=== PATIENT | male | born 1970 | race Caucasian/White ===

== ENCOUNTER 2020-04-30 05:08 | Inpatient (IN) ==
[2020-04-30 05:39] LABS: Basophils # (auto) 0.05 K/uL (0-0.2); Basophils % (auto) 0.4 %; Eosinophils % (auto) 5.8 %; Hematocrit (blood only) 41.5 % (42-52); Hemoglobin 14.1 g/dL (14.0-18.0); Immature Granulocytes # (auto) 0.04 K/uL (0.00-0.02); Immature Granulocytes % (auto) 0.3 %; Lymphocytes # (auto) 3.19 K/uL (1.2-3.4); Lymphocytes % (auto) 26.3 %; Mean Corpuscular Hemoglobin 29.5 pg (25-34); Mean Corpuscular Volume 86.8 fL (80-100); Mean Platelet Volume 11.9 fL (7.4-10.4); Monocytes # (auto) 1.01 K/uL (0.11-0.59); Monocytes % (auto) 8.3 %; Neutrophils # (auto) 7.15 K/uL (1.4-6.5); Neutrophils % (auto) 58.9 %; Platelet Count 238 K/uL (130-400); RDW Coefficient of Variation 15.1 % (11.5-14.5); RDW Standard Deviation 48.4 fL (36.4-46.3); Red Blood Count 4.78 M/uL (4.7-6.1); White Blood Count 12.14 K/uL (4.8-10.8)
[2020-04-30 05:48] LABS: Albumin Level 3.7 gm/dl (3.4-5.0); BUN Creatinine Ratio 16.5 (10-20); Calcium 8.8 mg/dl (8.5-10.1); Creatinine Clr Calc Pharmacy 105.3 ml/min; Est GFR (African American) 98.9; Est GFR (Non-African American) 85.3; Potassium 4.3 mmol/L (3.5-5.1)
--- NOTE | 2020-04-30 05:52 | Emergency Department Note ---
Impression & Plan Non-ST elevation (NSTEMI) myocardial infarction ED Provider Note NAME: OLEGARIO GUTIÉRREZ AGE: 50 SEX: M ARRIVES VIA: Walk-In INFORMANT: Patient ED PROVIDER(S): Ping Lozano DO CHIEF COMPLAINT: Chest pain [facility]AN[facility]: Stable MEDICAL DECISION MAKING: This is a 50-year-old male patient who presents to the emergency department having intermittent episodes of chest pain. Patient has a known cardiac history with previous stents placed. Patient has a normal-appearing EKG but has an elevated troponin. His presentation is consistent with NSTEMI. Patient patient will be treated with IV heparin. He had already taken aspirin prior to presentation. His blood pressure and heart rate are controlled. [facility] and [facility] will evaluate for further management. Triage Nursing notes reviewed and agree them. Additional history obtained from at the bedside Vital Signs: reviewed and remarkable for hypertension Differential diagnosis: STEMI, NSTEMI, angina, GERD, anxiety ER treatment provided: IV heparin bolus and drip Diagnostics interpreted by me: ECG: Normal sinus rhythm with frequent PVCs. No ST segment elevation or signs of ischemia Cardiac Monitoring: Normal sinus rhythm at 80 Laboratory studies: See below Imaging studies: As per my interpretation Chest x-ray: The patient is rotated in the film but there are some small nodular densities. HPI: 50/M arrives for evaluation of chest pain. The patient has been having intermittent episodes of substernal chest discomfort over the past 2 days. He has been using his nitroglycerin more frequently. Patient had an episode at 3 AM this morning which she describes as being severe. He took 2 sublingual nitro which did relieve the discomfort. There was some associated shortness of breath with that episode. Patient has a history of 2 previous heart attacks and 2 previous stents placed. ROS: See above HPI for pertinent positives & negatives. A total of 10 systems reviewed and were otherwise negative. PAST MEDICAL HISTORY:Patient has a history of heart disease with 2 previous stent placements( OM2 and PDA) after having 2 previous MIs. PAST SURGICAL HISTORY:See Below FAMILY HISTORY:See Below SOCIAL HISTORY:Patient is a team otr truck driver, he is , HOME MEDICATIONS:See list ALLERGIES:None VITALS:See Below PHYSICAL EXAMINATION: HEENT: Head - normocephalic and atraumatic Pupils are equal, round, and reactive to light. Extraocular eye muscles are intact, and sclera are anicteric. Nose - moist nasal mucosa without discharge. Mouth - moist buccal mucosa. Oropharynx is nonerythematous and there is no tonsillar exudate or edema noted. Neck: Supple; no JVD, nuchal rigidity, cervical lymphadenopathy, or auscultated bruits. Heart: Regular rate and rhythm. There is a normal S1 and S2 with no murmurs, clicks, or gallops appreciated. Lungs: Clear to auscultation bilaterally with no wheezes, rales, or rhonchi. Abdomen: Soft, completely nontender, nondistended, with good bowel sounds. There are no palpable pulsatile masses or hepatosplenomegaly. There is no guarding, rigidity, or rebound noted. Extremities: No evidence of cyanosis, clubbing, or edema. There are easily palpable peripheral pulses. Skin: warm and dry with good turgor multiple tattoos ED COURSE: Times/Reassessments: 0520: The patient was evaluated in room a 11. A complete history and physical was performed. An order was placed for continuous cardiac monitoring. The patient was in a normal sinus rhythm at a rate of 80. An IV lock was initiated and labs were drawn as above. A twelve-lead EKG was obtained as described above. A portable chest x-ray had been performed as described above. 0600 I reevaluated the patient at this time and he is resting comfortably. He has had no return of the chest discomfort. His blood pressure came down nicely on its own. 0610: I reviewed the results of laboratory testing with the patient and his . 0620: The patient was started on an IV heparin drip after receiving it a heparin bolus. 0625: The patient began to complain of more left-sided chest discomfort and jaw pain. A repeat twelve-lead EKG was obtained which showed no acute ischemic changes or ST segment elevation. Normal sinus rhythm at 80 with no ischemia or T wave changes. It was essentially unchanged from the original EKG except there were no PVCs. The patient appeared quite anxious to me at this time. He was given 0.5 mg of IV Ativan. I discussed the case with Dr. Zohra Soriano and he will evaluate the patient for admission to the hospital. I have personally spent greater than 30 minutes of critical care time in the direct management of this patient. This includes bedside care, interpretation of diagnostic studies, and testing, discussion with consultants, patient, and family members, and other required patient management activities. This 30 minutes is in excess of all separately billable procedures. Ping Lozano DO Past Med/Surg History Social History Smoking Status: Never smoker Feels Safe at Home: Yes Allergies Allergies Allergy/AdvReac Type Severity Reaction Status Date / Time No Known Allergies Allergy Verified 04/30/20 05:36 Home Meds Home Medications Medication Instructions Recorded Confirmed atorvastatin 80 mg PO DAILY 04/30/20 04/30/20 carvedilol 12.5 mg PO BID 04/30/20 04/30/20 clopidogrel [Plavix] 75 mg PO DAILY 04/30/20 04/30/20 nitroglycerin [Nitrostat] 0.4 mg SUBLINGUAL DIRECTED PRN 04/30/20 04/30/20 Results & Data (ED) Vital Signs Vital Signs - 24 hr 04/30/20 05:13 04/30/20 05:30 04/30/20 05:33 Temperature 36.8 C Temperature Source Oral Pulse Rate 88 80 Respiratory Rate 16 22 Respiratory Depth Normal Blood Pressure 175/109 H 151/101 H Blood Pressure Mean 131 111 Blood Pressure Position Lying Pulse Oximetry 97 97 96 Oxygen Delivery Method Room Air Room Air Sepsis Recent Fever Within 48 Hours No Sepsis New/Unexplained Change in Mental Status No Sepsis Action Taken by Nursing No Action Required 04/30/20 06:00 Temperature Temperature Source Pulse Rate 82 Respiratory Rate 23 Respiratory Depth Blood Pressure 117/82 Blood Pressure Mean 90 Blood Pressure Position Pulse Oximetry 94 Oxygen Delivery Method Sepsis Recent Fever Within 48 Hours Sepsis New/Unexplained Change in Mental Status Sepsis Action Taken by Nursing Laboratory Data Result diagrams: 04/30/20 05:15 04/30/20 05:15 Lab Results 04/30/20 04/30/20 Range/Units 05:15 05:15 WBC 12.14 H (4.8-10.8) K/uL RBC 4.78 (4.7-6.1) M/uL Hgb 14.1 (14.0-18.0) g/dL Hct 41.5 L (42-52) % MCV 86.8 (80-100) fL MCH 29.5 (25-34) pg MCHC 34.0 (32-36) g/dL RDW Std Deviation 48.4 H (36.4-46.3) fL RDW Coeff of Coleen 15.1 H (11.5-14.5) % Plt Count 238 (130-400) K/uL MPV 11.9 H (7.4-10.4) fL Immature Gran % (Auto) 0.3 % Neut % (Auto) 58.9 % Lymph % (Auto) 26.3 % [place] % (Auto) 8.3 % Eos % (Auto) 5.8 % Baso % (Auto) 0.4 % Neut # (Auto) 7.15 H (1.4-6.5) K/uL Lymph # (Auto) 3.19 (1.2-3.4) K/uL [place] # (Auto) 1.01 H (0.11-0.59) K/uL Eos # (Auto) 0.70 H (0-0.5) K/uL Baso # (Auto) 0.05 (0-0.2) K/uL Immature Gran # (Auto) 0.04 H (0.00-0.02) K/uL Sodium 141 (136-145) mmol/L Potassium 4.3 (3.5-5.1) mmol/L Chloride 111 H (98-107) mmol/L Carbon Dioxide 27 (21-32) mmol/L Anion Gap 3.0 (3-11) BUN 17 (7-18) mg/dl Creatinine 1.02 (0.6-1.4) mg/dl Est Cr Clr Drug Dosing 105.3 ml/min Est GFR ( Amer) 98.9 Est GFR (Non-Af Amer) 85.3 BUN/Creatinine Ratio 16.5 (10-20) Glucose 100 H (70-99) mg/dl Calcium 8.8 (8.5-10.1) mg/dl Total Bilirubin 0.4 (0.2-1) mg/dl AST 15 (15-37) U/L ALT 24 (12-78) U/L Alkaline Phosphatase 138 H (45-117) U/L Troponin I 0.051 H* (0-0.045) ng/ml Total Protein 7.4 (6.4-8.2) gm/dl Albumin 3.7 (3.4-5.0) gm/dl Globulin 3.7 (2.5-4.0) gm/dl Albumin/Globulin Ratio 1.0 (0.9-2) Lipase 115 (73-393) U/L Discharge Plan Visit Data Chief Complaint: Chest Pain Stated Complaint: CHEST,JAW,ARM PAIN,HX OF HEART ATTACK ED Provider: Ping Lozano Discharge Problem: Non-ST elevation (NSTEMI) myocardial infarction Forms Stand Alone Forms: [facility] Prescriptions Prescriptions: No Action atorvastatin 80 mg Tablet 80 mg PO DAILY RF: 0 carvedilol 12.5 mg Tablet 12.5 mg PO BID RF: 0 clopidogrel [Plavix] 75 mg Tablet 75 mg PO DAILY RF: 0 nitroglycerin [Nitrostat] 0.4 mg Tablet, Sublingual 0.4 mg sublingual DIRECTED PRN (Reason: Chest Pain) RF: 0
[2020-04-30 06:06] LABS: Bilirubin,Total 0.4 mg/dl (0.2-1); Globulin 3.7 gm/dl (2.5-4.0); Total Protein 7.4 gm/dl (6.4-8.2); Troponin I 0.051 ng/ml (0-0.045)
[2020-04-30] MEDS ORDERED: HEPARIN SODIUM/DEXTROSE 25,000 UNITS/500 ML BAG IV SCH (06:15)
[2020-04-30] MEDS ORDERED: LORazepam 0.5 MG/1 ML VIAL IV STA (06:26)
--- NOTE | 2020-04-30 06:55 | XRay Report ---
XR chest 1V portable CLINICAL HISTORY: Atypical chest pain COMPARISON STUDY: No previous studies for comparison. FINDINGS: The heart is the upper limits of normal in size. There is no failure. There is no lobar con solidation. There is slight coarsening of the bronchovascular markings at the right medial lung base. . No pleural effusions are evident.[ IMPRESSION: 1. AP portable study. No evidence of failure. No evidence of lobar consolidation 2. Nonspecific coarsening of the bronchovascular markings at the right medial lung base ACT 112: Negative or not required by law. Electronically signed by: Flaco Graham M.D. 04/30/2020 6:54 AM
[2020-04-30 07:17] LABS: INR 0.9 (0.9-1.1); Partial Thromboplastin Ratio 1.1; Partial Thromboplastin Time 29.6 Seconds (21.0-31.0); Prothrombin Time 9.9 Seconds (9.0-12.0)
[2020-04-30] MEDS ORDERED: HEPARIN SOD (PORCINE) 1000 UNIT/ML 10 ML VIAL ONE (07:22)
[2020-04-30] MEDS ORDERED: SODIUM CHLORIDE 0.9% 1000ML 1,000 ML IV SCH ×2 (07:47→14:15)
[2020-04-30] MEDS ORDERED: ONDANSETRON INJ 2 MG/ML 2 ML VIAL IV PRN (07:47)
[2020-04-30] MEDS ORDERED: NITROGLYCERIN SL 0.4 MG/TAB TAB SL PRN ×2 (07:47)
[2020-04-30] MEDS ORDERED: ACETAMINOPHEN 325 MG TAB PO PRN ×2 (07:47→14:10)
--- NOTE | 2020-04-30 08:06 | History and Physical Report ---
DATE OF ADMISSION: 04/30/2020 CHIEF COMPLAINT: Chest pain. HISTORY OF PRESENT ILLNESS: This is a 50-year-old male with past medical history significant for history of coronary artery disease, prediabetes, depression, anxiety, tobacco use disorder, presents with chest pain. The patient is a heavy duty truck mechanic. He states that since last Sunday he was getting chest pain, a pressure-like feeling in the chest 8/10 in severity that lasts about 5-10 minutes and subsides down, it is not associated with any activity. It happened when he was driving the truck and he has to hold the steering stiff and it is causing pain in his elbows and also neck region. He is taking nitro which seemed to help, but the pain is coming back. Today took 5 nitros, which prompted him to come to the ER. In the ER currently, the pain is 2/10 in severity. EKGs, no acute findings. Troponin was slightly elevated at 0.05. Getting IV heparin for non-ST elevated myocardial infarction. Hemodynamics are stable. Denies any other problems. Denies any headache, no blurred vision, no earache, no runny nose, no sore throat, no cough, no loss of sense of smell or taste. No dysphagia, no shortness of breath, no nausea, no abdominal pain. Normal bowel and bladder movements. No swelling in the legs, no rash. Otherwise, before this episode, he was ambulating okay without any issues. ALLERGIES: No known drug allergies. PAST MEDICAL HISTORY: As mentioned above. PAST SURGICAL HISTORY: Jaw fracture repair MEDICATIONS: The patient is on aspirin 81 mg p.o. daily, Plavix 75 mg p.o. daily, Lipitor 80 mg p.o. daily, Coreg 12.5 mg p.o. b.i.d., nitroglycerin 0.4 mg sublingual p.r.n. FAMILY HISTORY: Significant for father had heart attack at age of 45. Mother has heart disease. SOCIAL HISTORY: , smokes 2 packs a day. No alcohol. Smokes marijuana. REVIEW OF SYMPTOMS: As per HPI. Rest of review of systems negative. PHYSICAL EXAMINATION: GENERAL: The patient is obese, not in acute distress. VITAL SIGNS: Temperature 36.8, pulse 82, respiratory rate 23, blood pressure 117/82, oxygen 94% room air. HEENT: Pupils equal, round, reactive to light. NECK: No JVD, no neck masses. CARDIOVASCULAR: S1, S2 heard, regular rate and rhythm, no murmur, no gallop. RESPIRATORY SYSTEM: Normal AP diameter. No accessory muscle use. No wheezing, no crackles. ABDOMEN: Soft, bowel sounds present, nontender. No distention. CENTRAL NERVOUS SYSTEM: Cranial nerves II-XII grossly intact. Nonfocal. EXTREMITIES: No edema, no erythema. LABORATORY DATA: WBC 12.1, hemoglobin 14.1, hematocrit 41.5, platelets 238. Sodium 141, potassium 4.3, chloride 101, CO2 27, BUN 17, creatinine 1.02, serum glucose 100, calcium 8.8, total bilirubin 0.4, AST 15, ALT 24, alkaline phosphatase 130. Troponin I 0.05. Lipase 115. Chest x-ray, no acute findings seen. EKGs, SVT sinus rhythm with frequent PVCs at a rate of 84. Q-waves in inferior leads. ASSESSMENT AND PLAN: This is a 50-year-old male who presents with chest pain 1. Non-ST elevated TN. History of myocardial infarction August 2018 and also 2014. s/p KATALINA.. Ongoing tobacco abuse, mild elevation in troponin. IV heparin started in the ER which will be continued. We will also place on nitro paste. Continue his home medication of Coreg, aspirin, Plavix and statin and follow serial enzymes, echocardiogram, keep n.p.o., gentle fluids and consult cardiology for further recommendations. 2. Hypertension. Continue statin. 3. Prediabetes. We will follow HbA1c levels.Currently NPO. 4. Tobacco abuse. Ongoing.Needs counselling. 5. Deep venous thrombosis prophylaxis, IV heparin. DISPOSITION: Closely monitor in tele floor. Level 1 full code. Expect discharge home and follow with family doctor. NIKO
[2020-04-30] MEDS: carvediloL 12.5 MG TAB PO SCH ×2 (08:36→20:02)
[2020-04-30] MEDS: CLOPIDOGREL BISULFATE 75 MG TAB PO SCH ×2 (08:36→08:50)
[2020-04-30] MEDS: ASPIRIN 81 MG ECTAB PO SCH (08:36)
[2020-04-30] MEDS: NITROGLYCERIN 2% OINTMENT 30GM TUBE EXT SCH ×2 (08:43→14:27)
[2020-04-30] MEDS ORDERED: ATORVASTATIN 40 MG TAB PO SCH (09:00)
--- NOTE | 2020-04-30 10:24 | Cardiology Consultation ---
Date of Consultation April 30, 2020 Assessment & Plan (1) Non-ST elevation (NSTEMI) myocardial infarction: Patient is a 50-year-old male with known atherosclerotic coronary disease and longstanding hypertension. Prior coronary intervention 2014 and 2018 presents now with accelerating anginal pattern and elevated troponin. Blood pressure is also significantly elevated. Does not appear to been taking medications. Now comfortable after treatment, appropriately anticoagulate Patient notes progression in symptoms recently. Have recommended patient undergo diagnostic cardiac catheterization and patient agreeable. Procedure and risks explained in detail and informed consent was obtained additional risks of coronary intervention if indicated also discussed. Patient will need aggressive risk factor modification and increased efforts on medical compliance/tobacco cessation Review of past records reveals ulnar artery access for last procedure 2018 with difficulty controlling bleeding post procedure. (2) Hypertensive urgency: (3) Coronary artery disease involving autologous artery coronary bypass graft with angina pectoris: (4) Tobacco abuse: History of Present Illness Reason for Consultation: Crescendo angina Requesting Physician: Dr Thomas Attending Physician: Jamie Thomas MD History of Present Illness Patient is a 50-year-old male presenting with symptoms consistent with prior angina/myocardial ischemia x3 days. His ongoing issues include 1. Premature atherosclerotic coronary disease status post non-ST segment elevation myocardial infarction 2014 with PCI of the right PDA, coronary intervention August 2018 with PCI to the OM 2. Dyslipidemia 3. Hypertension, labile 4. Chronic tobacco use greater than 1/2 packs/day 5. Borderline hyperglycemia Patient presents now noting 3 to 4-day history of intermittent chest pressure pains radiating to his arm and shoulder consistent with past angina. "Attempted to tough it out but recognize symptoms and sent him to the emergency room". Pain relieved with 2 sublingual nitroglycerin Patient denies rheumatic fever scarlet fever heart murmur. Notes no history of TIA or stroke. Notes no bleeding difficulties no hematochezia dysuria hematuria. No planned surgeries. Appetite and weight are generally stable. No fevers chills cough. No headache or visual changes. Weight generally stable. Feels he has been compliant with medications recently. Still smoking, no more than 2 packs/day On presentation EKG without acute ischemia though with frequent ventricular ectopy. Blood pressure substantially elevated and troponin mildly elevated Currently comfortable. Allergies Allergy/AdvReac Type Severity Reaction Status Date / Time No Known Allergies Allergy Verified 04/30/20 05:36 Home Medications Home Medications Medication Instructions Recorded Confirmed Type atorvastatin 80 mg PO DAILY 04/30/20 04/30/20 History carvedilol 12.5 mg PO BID 04/30/20 04/30/20 History clopidogrel [Plavix] 75 mg PO DAILY 04/30/20 04/30/20 History nitroglycerin [Nitrostat] 0.4 mg SUBLINGUAL DIRECTED PRN 04/30/20 04/30/20 History Patient History Social History Smoking Status: Current every day smoker Second Hand Exposure: Yes; Do You Dip or Chew Tobacco: No; Tobacco Cessation Education Requested by Patient: No Hx Alcohol Use: No Hx Substance Use: No Preferred Language: Slovak Communication Ability: Effective Jig Grinder Required: No Beliefs That Will Affect Care: None Current Living Situation: Spouse Other Information That Helps Us Care for You: No Feels Safe at Home: Yes Safety Concerns: Feels Safe At This Time Assistive Devices: None Review of Systems Review of Systems: All systems reviewed & are unremarkable except as noted in HPI & below Physical Exam Constitutional: WD/WN, vitals as above Eyes: PERRL, conjunctivae normal, anicteric sclerae ENMT: external ear and nose normal, oropharynx normal Neck: trachea midline, no thyromegaly Respiratory: normal respiratory effort, lungs clear to auscultation Cardiovascular: Rate/Rhythm: regular rate and regular rhythm Heart Sounds: normal S1 and normal S2; no gallop and no murmur Palpation: normal PMI Vessels: normal carotid upstroke and radial pulses present; no JVD and no carotid bruit Extremities: no edema Gastrointestinal (Abdomen): normal bowel sounds, soft, nontender, no hepatosplenomegaly Musculoskeletal: no cyanosis or clubbing, extremities motor strength 5/5 Skin: no rashes, warm and dry Neurologic: PERRL, EOMI, accommodation nl, no face palsy, no dysarthria Psychiatric: A+Ox3, euthymic affect Results & Data ([facility]) Vital Signs (Past 12 Hours) Vital Signs Temp Pulse Pulse Resp BP BP Pulse Ox 04/30/20 09:24 92 H 04/30/20 08:47 36.4 C L 73 18 160/93 H 94 04/30/20 07:24 81 22 135/97 95 04/30/20 07:00 77 25 H 93 04/30/20 06:30 81 24 136/104 H 04/30/20 06:00 82 23 117/82 94 04/30/20 05:33 96 04/30/20 05:30 80 22 151/101 H 97 04/30/20 05:13 36.8 C 88 16 175/109 H 97 Laboratory Results Laboratory Results - last 24 hr 04/30/20 04/30/20 04/30/20 05:15 05:15 05:15 WBC 12.14 H RBC 4.78 Hgb 14.1 Hct 41.5 L MCV 86.8 MCH 29.5 MCHC 34.0 RDW Std Deviation 48.4 H RDW Coeff of Coleen 15.1 H Plt Count 238 MPV 11.9 H Immature Gran % (Auto) 0.3 Neut % (Auto) 58.9 Lymph % (Auto) 26.3 [place] % (Auto) 8.3 Eos % (Auto) 5.8 Baso % (Auto) 0.4 Neut # (Auto) 7.15 H Lymph # (Auto) 3.19 [place] # (Auto) 1.01 H Eos # (Auto) 0.70 H Baso # (Auto) 0.05 Immature Gran # (Auto) 0.04 H PT Cancelled INR Cancelled APTT Cancelled PTT Ratio Cancelled Sodium 141 Potassium 4.3 Chloride 111 H Carbon Dioxide 27 Anion Gap 3.0 BUN 17 Creatinine 1.02 Est Cr Clr Drug Dosing 105.3 Est GFR ( Amer) 98.9 Est GFR (Non-Af Amer) 85.3 BUN/Creatinine Ratio 16.5 Glucose 100 H Estimat Average Glucose Hemoglobin A1c Calcium 8.8 Total Bilirubin 0.4 AST 15 ALT 24 Alkaline Phosphatase 138 H Troponin I 0.051 H* Total Protein 7.4 Albumin 3.7 Globulin 3.7 Albumin/Globulin Ratio 1.0 Lipase 115 COVID-19 Eval Order SARS-CoV-2, RNA, NAAT 04/30/20 04/30/20 04/30/20 06:48 09:35 09:35 WBC RBC Hgb Hct MCV MCH MCHC RDW Std Deviation RDW Coeff of Coleen Plt Count MPV Immature Gran % (Auto) Neut % (Auto) Lymph % (Auto) [place] % (Auto) Eos % (Auto) Baso % (Auto) Neut # (Auto) Lymph # (Auto) [place] # (Auto) Eos # (Auto) Baso # (Auto) Immature Gran # (Auto) PT 9.9 INR 0.9 APTT 29.6 PTT Ratio 1.1 Sodium Potassium Chloride Carbon Dioxide Anion Gap BUN Creatinine Est Cr Clr Drug Dosing Est GFR ( Amer) Est GFR (Non-Af Amer) BUN/Creatinine Ratio Glucose Estimat Average Glucose Hemoglobin A1c Calcium Total Bilirubin AST ALT Alkaline Phosphatase Troponin I Total Protein Albumin Globulin Albumin/Globulin Ratio Lipase COVID-19 Eval [facility] SARS-CoV-2, RNA, NAAT NEGATIVE 04/30/20 04/30/20 09:46 09:46 WBC RBC Hgb Hct MCV MCH MCHC RDW Std Deviation RDW Coeff of Coleen Plt Count MPV Immature Gran % (Auto) Neut % (Auto) Lymph % (Auto) [place] % (Auto) Eos % (Auto) Baso % (Auto) Neut # (Auto) Lymph # (Auto) [place] # (Auto) Eos # (Auto) Baso # (Auto) Immature Gran # (Auto) PT INR APTT PTT Ratio Sodium Potassium Chloride Carbon Dioxide Anion Gap BUN Creatinine Est Cr Clr Drug Dosing Est GFR ( Amer) Est GFR (Non-Af Amer) BUN/Creatinine Ratio Glucose Estimat Average Glucose 123 Hemoglobin A1c 5.9 H Calcium Total Bilirubin AST ALT Alkaline Phosphatase Troponin I 0.053 H* Total Protein Albumin Globulin Albumin/Globulin Ratio Lipase COVID-19 Eval Order SARS-CoV-2, RNA, NAAT
[2020-04-30 10:42] LABS: Estimated Average Glucose 123 mg/dl; Hemoglobin A1C 5.9 % (4.5-5.6)
[2020-04-30] MEDS ORDERED: niCARdipine HCL INJ 2.5 MG/ML 10 ML AMP ONE (10:53)
[2020-04-30] MEDS ORDERED: fentaNYL citrate 100 MCG/2 ML VIAL ONE (10:53)
[2020-04-30] MEDS ORDERED: HEPARIN (PORCINE) 1000 UNIT/ML 10 ML (CATH LAB USE ONLY) ONE (10:53)
[2020-04-30] MEDS ORDERED: MIDAZOLAM HCL 1 MG/ML 2ML VIAL ONE ×2 (10:54→12:39)
[2020-04-30] MEDS ORDERED: NITROGLYCERIN/D5W 100MCG/ML 20ML SYR ONE (10:54)
--- NOTE | 2020-04-30 11:10 | Pre Anesthesia Assessment ---
Date of Service April 30, 2020 Pre Sedation Assessment Vital Signs Temp Pulse Pulse Resp BP BP Pulse Ox 04/30/20 09:24 92 H 04/30/20 08:47 36.4 C L 73 18 160/93 H 94 04/30/20 07:24 81 22 135/97 95 04/30/20 07:00 77 25 H 93 04/30/20 06:30 81 24 136/104 H 04/30/20 06:00 82 23 117/82 94 04/30/20 05:33 96 04/30/20 05:30 80 22 151/101 H 97 04/30/20 05:13 36.8 C 88 16 175/109 H 97 Cardiovascular RRR, no murmur, no edema Respiratory normal respiratory effort, lungs clear to auscultation Pre-Sedation Airway Assessment Smoking Status: Current every day smoker Hx Sleep Apnea: No Short, Thick Neck: No Thyromental Distance: > or= 3.5 Finger Breadths Oral Cavity: + Chipped Teeth Mallampati Class: IV ASA: ASA3 NPO Status Date of Last Intake of Fluids: 04/30/20 Time of Last Intake of Fluids: 03:00 Date of Last Intake of Solid Food: 04/30/20 Time of Last Intake of Solid Foods: 03:00 Procedure Planning Contraindications for Sedation: none Current Medications Reviewed: Yes Notes The planned sedation has been discussed with the patient. Informed Consent was obtained. I have identified the patient, determined the appropriateness of sedation and have assessed the patient immediately prior to the procedure. All medicine(s) and interventions are by my order.
--- NOTE | 2020-04-30 12:07 | Cardiac Catheterization ---
Cardiac Cath Procedure Brief Procedure Date April 30, 2020 Pre-Procedure Diagnosis Pre-Procedure Diagnosis: Non STEMI AUC Score AUC Score: 9 Post-Procedure Diagnosis Post-Procedure Diagnosis: Severe CAD Procedure(s) Performed Procedure(s) Performed: Coronary Angiography and Left Heart Cath Customer Care Team Coach Darwin Littlejohn MD Financial Aid Manager(s) Samara Garza Estimated Blood Loss Estimated Blood Loss: <15cc Medication(s) Medication(s): Fentanyl (12.5 mg IV), Lidocaine 1% (Local infiltration access site) and Versed (1 mg IV) Preliminary Findings Right dominant coronary anatomy Patent stents within the left circumflex marginal and right coronary artery posterior descending artery LAD diagonal branch moderately large as culprit lesion with 80% ostial stenosis Recommendations Recommendations: PCI without planned CABG Specimens Specimens: None Fluids (cc crystalloids) Fluids (cc crystalloids): 83 Anesthesia Start time: 1116, stop time 1155 Procedural Complication(s) None Disposition Coronary intervention same setting
--- NOTE | 2020-04-30 12:22 | Cardiac Catheterization ---
Cardiac Cath Procedure Full Procedure Date April 30, 2020 Pre-Procedure Diagnosis Pre-Procedure Diagnosis: Non STEMI AUC Score AUC Score: 9 Post-Procedure Diagnosis Post-Procedure Diagnosis: Severe CAD Procedure(s) Performed Procedure(s) Performed: Coronary Angiography and Left Heart Cath Overseamer Darwin Littlejohn MD Civil Engineering Design Draftsperson(s) [facility] Estimated Blood Loss Estimated Blood Loss: <15cc Medication(s) Medication(s): Fentanyl (12.5 mg IV), Lidocaine 1% (Local infiltration access site) and Versed (1 mg IV) Summary of Findings Final impressions: Right dominant coronary anatomy Patent stents within the left circumflex marginal and right coronary artery posterior descending artery LAD diagonal branch, moderately large as culprit lesion with 80% ostial stenosis Hypertensive disease Coronary angiography: Right dominant coronary anatomy Left main: Large and trifurcating. Mild 10% coronary atherosclerosis distal vessel Left anterior descending: Type III in distribution. It gives rise to a tiny first diagonal branch and a moderately large bifurcating second diagonal branch at the end of its proximal one third, opposite a large large septal branch. The left anterior descending courses to terminate beyond the apex. Within the left anterior descending there are moderate luminal irregularities in its midportion. The second and largest diagonal branch is narrowed at its ostium by 80%. Ramus intermedius: Moderate size vessel with moderate irregularities in its proximal portion but no obstruction Left circumflex: Large caliber but nondominant vessel. It gives rise to a large first marginal branch and a very large obtuse marginal at the AV groove. Within the left circumflex there are moderate luminal irregularities. There is an area of extensive stenting in the midportion of the second marginal branch which is widely patent. Right coronary artery: Large caliber vessel dominant distribution. It gives rise to a sinoatrial branch at its ostium, a large atrial and large right ventricular/marginal branch at the end of its proximal third then courses to give rise to a long branching posterior descending artery and a single multibranching posterior ventricular branch. Within the right coronary artery, there is diffuse luminal irregularities throughout with a long 30% to 40% narrowing in its proximal turn. Area of prior stenting within the right posterior descending artery is widely patent with minimal 20 to 30% in-stent narrowing. The large right ventricular branch has diffuse disease in its ostium and proximal portion LV angiography: Not performed Left ventricular end-diastolic pressure 1820 Hemodynamics Rest Ao:: 141/87/107 Final Ao: 146/86/111 LV: 139/9/20 Recommendations Recommendations: PCI without planned CABG Specimens Specimens: None Radiation Exposure (mGy) 1083 Contrast (mls) 80 Fluids (cc crystalloids) Fluids (cc crystalloids): 83 Anesthesia Start time: 1116, stop time 1155 Procedural Complication(s) None Disposition Coronary intervention same setting I attest to the content of the Intraoperative Record and any orders documented therein. Any exceptions are noted below. [facility] Data: Certified Medical Biller Cardiac Status Clinical evaluation leading to the procedure 50-year-old male with known premature coronary artery disease presents symptoms of crescendo angina x3 days consistent past myocardial ischemia, mild elevation in troponin CAD Presenation: Non STEMI Anginal Classification: CCS IV Heart Failure: No Cardiogenic Shock within 24 Hours: No Cardiac Arrest within 24 Hours: No Imaging Studies Past 6 Months: Yes Stress Studies Past 6 Months: No Standard Exercise Test: No Stress Echocardiogram: No Stress Testing w/SPECT MPI: No Cardiac CTA: No Coronary Anatomy Dominant: Right Left Main (% Stenosis): Distal (10) LAD (% Stenosis): Mid (Moderate irregularities) D1 (% Stenosis): Normal (Small) D2 (% Stenosis): Ostial (80) Circumflex (% Stenosis): Mid (Moderate irregularities) OM1 (% Stenosis): Normal OM2 (% Stenosis): Mid (Patent stent) RCA (% Stenosis): Proximal (40) R PDA (% Stenosis): Mid (Patent stent) R PL1 (% Stenosis): Normal AM (% Stenosis): Ostial (80, modest caliber RV branch) Ramus (% Stenosis): Normal Diagnostic Physicians Name: Darwin Littlejohn MD Closure Device Recommendations: PCI without planned CABG
[2020-04-30] MEDS ORDERED: CLOPIDOGREL BISULFATE 300 MG TAB ONE (13:07)
--- NOTE | 2020-04-30 13:22 | Post Anesthesia Assessment ---
Date of Service April 30, 2020 Post Sedation Assessment Vital Signs Temp Pulse Pulse Resp BP BP Pulse Ox 04/30/20 09:24 92 H 04/30/20 08:47 97.5 F L 73 18 160/93 H 94 04/30/20 07:24 81 22 135/97 95 04/30/20 07:00 77 25 H 93 04/30/20 06:30 81 24 136/104 H 04/30/20 06:00 82 23 117/82 94 04/30/20 05:33 96 04/30/20 05:30 80 22 151/101 H 97 04/30/20 05:13 98.2 F 88 16 175/109 H 97 Recovery Score Activity: Moves 4 extremities Respiration: Deep Breath/Cough Circulation: +/-20% PreAnes Value Consciousness: Fully Awake Oxygen Saturation: O2 needed for >90% Discharge Sedation Level of Care: Fast Track Phase II Post Sedation Plan On clinical assessment, the patient appears to have tolerated the sedation without complications. Patient is recovering as anticipated. Patient will continue to be monitored by nursing and may be discharged when sedation discharge criteria are met per below protocol. Upon Completions of procedure up to 15 minutes continue every 5 minute vital signs and the P.A.R. score; then discharge to a Phase I or Fast Track to Phase II per the following guidelines: * Discharge Patient to appropriate Phase II area if PAR is 8 or greater or return to pre- procedure baseline. The post - procedure orders will be as directed. * If PAR score is less than 8 or not return to pre-procedure baseline then patient will follow Phase I monitoring till PAR is reached for Phase II. The Phase I may be done in procedure room or may call to secure a Phase I area. * If naloxone or flumazenil are used for reversal, hold in Phase I for continued monitoring from when last reversal dose was given for a minimum of 60 minutes or longer pending the nurse and/or physician discretion of patient condition before discharge to Phase II. Please call the Sedation Physician to re-evaluate and complete post-note for discharge to Phase II area. Do NOT discharge from procedure sedation or Phase 1 until post- sedation evalu ation note is complete by procedure /sedation MD Sedation Discharge Instructions to be given to the patient at discharge to home.
--- NOTE | 2020-04-30 13:26 | Cardiac Catheterization ---
[facility] Data: Alarm Installation Technician Cardiac Status Clinical evaluation leading to the procedure CAD Presenation: Non STEMI Anginal Classification: CCS III Heart Failure: Yes Cardiogenic Shock within 24 Hours: No Cardiac Arrest within 24 Hours: No Imaging Studies Past 6 Months: Yes Stress Studies Past 6 Months: No Diagnostic Physicians Name: Stanley Lee MD Status: Elective Closure Device Percutaneous Entry Location: Femoral Closure Device: Angio-Seal Recommendations: PCI without planned CABG PCI Indication: PCI for high risk Non-AYE Lesion Segment Name: Mid LAD/2nd diagonal Culprit Artery: Yes Stenosis Prior to Rx (%): 90 Chronic Total Occlusion: No IVUS: Yes FFR: No Pre-Procedure VINCE Flow: 3 Previously Treated Lesion: No Lesion Complexity: High/C Lesion Length (mm): 15 Thrombus Present: No Bifurcation Lesion: Yes Guidewire Across Lesion: Stenosis Post-Procedure (%): 0 Post-Procedure VINCE Flow: 3 Devices(s) Deployed: Yes Yes Intraprocedure Events Significant Disection: No Perforation: No Cardiac Cath Procedure Full Procedure Date April 30, 2020 Pre-Procedure Diagnosis Pre-Procedure Diagnosis: Non STEMI AUC Score AUC Score: 9 Post-Procedure Diagnosis Post-Procedure Diagnosis: Severe CAD and Successful PCI Procedure(s) Performed Procedure(s) Performed: Coronary Angiography, Drug Eluting Stent and IVUS Battery Loader Stanley Lee MD Certified Solid Waste Facility Operator(s) Samara Garza Estimated Blood Loss Estimated Blood Loss: <15cc Medication(s) Medication(s): Clopidogrel, Fentanyl (12.5 mg IV), Heparin, Lidocaine 1% (Local infiltration access site), Nicardipine, Nitroglycerin and Versed (1 mg IV) Summary of Findings Indication: NSTEMI, history of coronary artery disease Access: 6 Fr right common femoral artery Catheters: EBU 3.75 guide Findings: For full details of patient's coronary angiography please see cath report dictated by Dr. Littlejohn. Briefly, patient found to have severe ostial D2 disease and moderate mid LAD disease. Decision to proceed with PCI -- PCI -- Antithrombotic therapy: Heparin, clopidogrel Procedure: Left main cannulated with EBU 3.75 guide Sterile Supervisor 50 wire passed across lesion into distal diagonal BMW wire placed to the distal LAD Ostial diagonal lesion predilated with 2.0 compliant balloon Dilated diagonal lesion stented with 2.25 x 12 mm Xience Domenica drug-eluting stent Worsened stenosis noted in LAD, IVUS confirmed moderate disease with significant stenosis in part secondary to protrusion diagonal stent back into the LAD Diagonal stent postdilated with 2.5 NC Second drug-eluting stent placed to mid LAD across takeoff of diagonal (3.0 x 18 mm Xience Domenica). Stent post-dilated with 3.5 noncompliant balloon IC vasodilators administered for spasm Post procedure VINCE 3 flow, stents well expanded with minimal residual stenosis and no apparent cardiac complications. Arterial Closure: AngioSeal Summary: 1. Successful PCI of mid LAD/second diagonal bifurcation with 2 drug-eluting stents (3.0 x 18 Xience to LAD, 2.25 x 12 Xience to D2). Recommendations: To PCU for continued monitoring Reloaded with clopidogrel 300 mg in Alarm Installation Technician Continue dual-antiplatelet therapy for at least 1 year. Consider extended therapy in the setting of bifurcation stenting. Continue statin, and ASCVD risk factor modification Consult cardiac Rehab Hemodynamics Rest Ao:: 132/85/105 Final Ao: 149/87/117 LV: -- Recommendations Recommendations: PCI without planned CABG Specimens Specimens: None Radiation Exposure (mGy) 4736 Contrast (mls) 160 Fluids (cc crystalloids) Fluids (cc crystalloids): 209 Drains Drains: none Anesthesia Moderate Procedural Complication(s) None Disposition PCU I attest to the content of the Intraoperative Record and any orders documented therein. Any exceptions are noted below. [facility] Card Cath Procedure Codes Therapeutic Services & Ancillary Proc Procedure 1: Cardiovascular Tx and Anc Procedures: 14713 IV Ultrasound (Coronary or Graft) Moderate Sedation Procedure 1: Sedation/Anesthesia: 70027 Mod Sedation by the same physician; Ea [id number] Minutes Stenting Procedure 1: Cardiovascular Stent Procedures: 88880 Perc transcatheter placement of intracoronary stent(s), with ang Procedure 2: Cardiovascular Stent Procedures: 55457 Ea addl branch of a major coronary artery PG Care Time/CCT Total # of Minutes Spent Total Time Spent with Patient: Total time spent is greater than 50% in coordination of care (as documented) at patient's floor/unit and/or counseling patient:
--- NOTE | 2020-04-30 14:01 | Hospitalist Progress Note ---
Date of Service April 30, 2020 Assessment & Plan (1) Coronary artery disease involving autologous artery coronary bypass graft with angina pectoris: (2) Non-ST elevation (NSTEMI) myocardial infarction: -50-year-old male with known premature coronary artery disease presents symptoms of crescendo angina x3 days consistent past myocardial ischemia, mild elevation in troponin -patient initially started on IV heparin drip, he was evaluated by cardiology service and went to cardiac cath on 04/30/2020. Patient then had drug eluting stents placed -patient will need to be on dual antiplatelets of aspirin 81 mg daily and clopidogrel 75 mg daily -continue atorvastatin 80 mg daily -beta blockers as per cardiology service (3) Hypertensive urgency: -initial blood pressure 175/109 when in the ED, likely from chest pain -was given nitro -currently on home dose carvedilol 12.5 mg BID HbA1c 5.9 - no diabetes (4) Tobacco abuse: -patient smokes 2 packs of cigarettes per day. He has been counseled to reduce smoking especially in regards to CAD. -patient declines nicotine patch at this time Admission and Anticipated Discharge Date Admission Date: April 30, 2020 Subjective Patient returns from cardiac cath to the telemetry collado. Patient's right groin cath site without acute swelling. Patient's at bedside. Patient is not in acute distress. He is comfortable. No acute pain reported. breathing on room air. no shortness of breath. he denies other symptoms Review of Systems Review of Systems: All systems reviewed & are unremarkable except as noted in Subjective Physical Exam Constitutional: comfortable Eyes: PERRL, conjunctivae normal, anicteric sclerae EOM intact bilaterally ENMT: external ear and nose normal, oropharynx normal Neck: normal visual inspection Respiratory: normal respiratory effort, lungs clear to auscultation Cardiovascular: Rate/Rhythm: + bradycardic Gastrointestinal (Abdomen): normal bowel sounds, soft, nontender, no hepatosplenomegaly Musculoskeletal: Head/Neck/Chest: normocephalic and head atraumatic right groin with dressing Neurologic: PERRL, EOMI, accommodation nl, no face palsy, no dysarthria Psychiatric: A+Ox3, euthymic affect Results & Data Results & Data ([facility]) Vital Signs (Past 12 Hours) Vital Signs Temp Pulse Pulse Resp BP BP Pulse Ox 04/30/20 13:29 65 18 162/88 H 93 04/30/20 13:15 94 H 18 153/92 H 95 04/30/20 09:24 92 H 04/30/20 08:47 36.4 C L 73 18 160/93 H 94 04/30/20 07:24 81 22 135/97 95 04/30/20 07:00 77 25 H 93 04/30/20 06:30 81 24 136/104 H 04/30/20 06:00 82 23 117/82 94 04/30/20 05:33 96 04/30/20 05:30 80 22 151/101 H 97 04/30/20 05:13 36.8 C 88 16 175/109 H 97
[2020-04-30] MEDS ORDERED: oxyCODONE HCL IR 5 MG TAB (IMMEDIATE RELEASE) PO PRN (14:10)
[2020-04-30] MEDS ORDERED: HYDROmorphone INJ 0.5 MG/0.5 ML SYR IV PRN (14:10)
[2020-04-30] MEDS ORDERED: oxyCODONE HCL IR 5 MG TAB (IMMEDIATE RELEASE) ONE (14:17)
--- NOTE | 2020-04-30 16:18 | Communication Note ---
Date of Service: April 30, 2020 Patient seen post recent cardiovascular procedures undergoing stenting the left anterior descending diagonal branch and left anterior descending at diagonal origin with good result. Right groin intact Plan continue observation overnight Aggressive management of underlying risk factors. We will add lisinopril 5 mg/day to medical regimen for hypertension control and to complete optimal regimen including beta-shahida dual antiplatelet therapy and statin. Tobacco cessation mandated Patient already on high-dose statin. May consider switch to rosuvastatin 40 mg/day versus addition of ezetimibe to her regimen Cardiac rehab will be suggested
[2020-04-30] MEDS ORDERED: lisinopril 5 MG TAB PO ONE (17:52)
--- NOTE | 2020-04-30 19:29 | Electrocardiogram Report ---
Test Reason : Blood Pressure : / mmHG Vent. Rate : 084 BPM Atrial Rate : 084 BPM P-R Int : 170 ms QRS Dur : 106 ms QT Int : 350 ms P-R-T Axes : 021 009 032 degrees QTc Int : 413 ms Sinus rhythm with frequent Premature ventricular complexes Possible Inferior infarct , age undetermined Abnormal ECG No previous ECGs available Confirmed by Onofre Salcedo ([id number]) on 04/30/2020 7:28:36 PM Referred By: REFERRED SELF Confirmed By:Onofre Salcedo
--- NOTE | 2020-04-30 19:31 | Electrocardiogram Report ---
Test Reason : Blood Pressure : / mmHG Vent. Rate : 080 BPM Atrial Rate : 080 BPM P-R Int : 182 ms QRS Dur : 098 ms QT Int : 370 ms P-R-T Axes : 027 002 028 degrees QTc Int : 426 ms Normal sinus rhythm Possible Inferior infarct (cited on or before 30-APR-2020) Abnormal ECG When compared with ECG of 30-APR-2020 05:17, Premature ventricular complexes are no longer Present Confirmed by Onofre Salcedo ([id number]) on 04/30/2020 7:31:09 PM Referred By: REFERRED SELF Confirmed By:Onofre Salcedo
[2020-05-01 07:04] LABS: Basophils # (auto) 0.02 K/uL (0-0.2); Basophils % (auto) 0.2 %; Eosinophils % (auto) 4.8 %; Hemoglobin 13.7 g/dL (14.0-18.0); Immature Granulocytes # (auto) 0.01 K/uL (0.00-0.02); Immature Granulocytes % (auto) 0.1 %; Lymphocytes # (auto) 2.19 K/uL (1.2-3.4); Lymphocytes % (auto) 21.2 %; Mean Corpuscular Hemoglobin 28.4 pg (25-34); Mean Corpuscular Hgb Conc 32.6 g/dL (32-36); Mean Platelet Volume 11.4 fL (7.4-10.4); Monocytes # (auto) 0.62 K/uL (0.11-0.59); Neutrophils # (auto) 7.01 K/uL (1.4-6.5); Neutrophils % (auto) 67.7 %; Platelet Count 248 K/uL (130-400); RDW Coefficient of Variation 14.7 % (11.5-14.5); RDW Standard Deviation 46.8 fL (36.4-46.3); Red Blood Count 4.83 M/uL (4.7-6.1); White Blood Count 10.35 K/uL (4.8-10.8)
[2020-05-01 07:30] LABS: BUN Creatinine Ratio 13.6 (10-20); Calcium 8.8 mg/dl (8.5-10.1); Creatinine Clr Calc Pharmacy 110.5 ml/min; Est GFR (African American) 105.1; Est GFR (Non-African American) 90.7; Magnesium 2.2 mg/dl (1.8-2.4); Potassium 4.1 mmol/L (3.5-5.1)
[2020-05-01 07:53] LABS: Troponin I 1.95 ng/ml (0-0.045)
[2020-05-01] MEDS: carvediloL 12.5 MG TAB PO SCH (07:59)
[2020-05-01] MEDS: ASPIRIN 81 MG ECTAB PO SCH (08:00)
[2020-05-01] MEDS: CLOPIDOGREL BISULFATE 75 MG TAB PO SCH (08:01)
--- NOTE | 2020-05-01 08:01 | Electrocardiogram Report ---
Test Reason : Blood Pressure : / mmHG Vent. Rate : 065 BPM Atrial Rate : 065 BPM P-R Int : 174 ms QRS Dur : 110 ms QT Int : 392 ms P-R-T Axes : 031 013 023 degrees QTc Int : 407 ms Normal sinus rhythm Peaked T waves(consider ischemia,hyperkalemia,etc.) Minor Anterior ST elevation, most consistent with repolarization variant Abnormal ECG When compared with ECG of 30-APR-2020 06:25, T waves slightly more peaked Otherwise no significant change Confirmed by Thee Araujo ([id number]) on 05/01/2020 8:01:05 AM Referred By: REFERRED SELF Confirmed By:Thee Araujo
--- NOTE | 2020-05-01 08:33 | Electrocardiogram Report ---
Test Reason : Blood Pressure : / mmHG Vent. Rate : 070 BPM Atrial Rate : 070 BPM P-R Int : 180 ms QRS Dur : 100 ms QT Int : 390 ms P-R-T Axes : 042 036 032 degrees QTc Int : 421 ms Normal sinus rhythm Minor Anterior ST elevation, most consistent with repolarization variant Normal ECG When compared with ECG of 30-APR-2020 17:09, No significant change was found Confirmed by Thee Araujo ([id number]) on 05/01/2020 8:32:38 AM Referred By: REFERRED SELF Confirmed By:Thee Araujo
[2020-05-01] MEDS ORDERED: ROSUVASTATIN CALCIUM 20 MG TAB PO SCH (09:00)
[2020-05-01] MEDS ORDERED: EZETIMIBE 10 MG TABLET PO SCH (09:00)
[2020-05-01] MEDS ORDERED: lisinopril 5 MG TAB PO SCH (09:00)
--- NOTE | 2020-05-01 11:12 | Hospitalist Progress Note ---
Date of Service May 01, 2020 Assessment & Plan (1) Coronary artery disease involving autologous artery coronary bypass graft with angina pectoris: (2) Non-ST elevation (NSTEMI) myocardial infarction: s/p cardiac catheterization with 2 drug eluting stents -50-year-old male with known premature coronary artery disease presents symptoms of crescendo angina x3 days consistent past myocardial ischemia, mild elevation initial troponin of 0.053 -patient initially started on IV heparin drip, he was evaluated by cardiology service and went to cardiac cath on 04/30/2020. PCI of mid LAD/second diagonal bifurcation with 2 drug-eluting stents (3.0 x 18 Xience to LAD, 2.25 x 12 Xience to D2). -patient will need to be on dual antiplatelets of aspirin 81 mg daily and clopidogrel 75 mg daily -have changed home dose atorvastatin 80 mg daily to rosuvastatin 40 mg daily with Ezetimibe 10 mg daily starting on 05/01/2020 -beta blockers as per cardiology service -05/01/2020: Patient seen and examined by hospitalist in AM of 05/01/2020. Despite rising troponin since cardiac cath on 05/01/2020 (to 0.784 and then 1.95 by AM labs of 05/01/2020), patient denies acute chest pain. There is some ecchymosis at the right groin cath site but no swelling. Patient has been ambulatory. Breathing on room air. No shortness of breath. No acute distress. No abdominal pain. No nausea. No vomiting. Patient awaiting cardiology doctor to see him for further recommendations. Patient will have next troponin drawn at 1 PM on 05/01/2020. (3) Hypertensive urgency: -initial blood pressure 175/109 when in the ED, likely from chest pain -was given nitro -started on lisinopril 5 mg daily starting on 04/30/2020, continue -also currently on home dose carvedilol 12.5 mg BID HbA1c 5.9 - no diabetes (4) Tobacco abuse: -patient smokes 2 packs of cigarettes per day. He has been counseled to reduce smoking especially in regards to CAD. -patient declines nicotine patch at this time Admission and Anticipated Discharge Date Admission Date: April 30, 2020 Subjective -05/01/2020: Patient seen and examined by hospitalist in AM of 05/01/2020. Despite rising troponin since cardiac cath on 05/01/2020 (to 0.784 and then 1.95 by AM labs of 05/01/2020), patient denies acute chest pain. There is some ecchymosis at the right groin cath site but no swelling. Patient has been ambulatory. Breathing on room air. No shortness of breath. No acute distress. No abdominal pain. No nausea. No vomiting. Patient awaiting cardiology doctor to see him for further recommendations. Patient will have next troponin drawn at 1 PM on 05/01/2020. Review of Systems Review of Systems: All systems reviewed & are unremarkable except as noted in Subjective Physical Exam Constitutional: comfortable Eyes: PERRL, conjunctivae normal, anicteric sclerae EOM intact bilaterally ENMT: external ear and nose normal, oropharynx normal Neck: normal visual inspection Respiratory: normal respiratory effort, lungs clear to auscultation Cardiovascular: Rate/Rhythm: regular rate and regular rhythm Gastrointestinal (Abdomen): normal bowel sounds, soft, nontender, no hepatosplenomegaly Musculoskeletal: Head/Neck/Chest: normocephalic and head atraumatic Neurologic: PERRL, EOMI, accommodation nl, no face palsy, no dysarthria Psychiatric: A+Ox3, euthymic affect Results & Data Results & Data ([facility]) Vital Signs (Past 12 Hours) Vital Signs Temp Pulse Pulse Resp BP Pulse Ox 05/01/20 11:02 70 05/01/20 07:52 37.2 C 82 18 158/101 H 95 05/01/20 04:26 36.8 C 86 18 134/78 96 05/01/20 00:05 36.7 C 75 18 150/103 H 96
--- NOTE | 2020-05-01 13:21 | Discharge Summary ---
Date of Service May 01, 2020 Admission HPI Per Admitting Provider DATE OF ADMISSION: 04/30/2020 CHIEF COMPLAINT: Chest pain. HISTORY OF PRESENT ILLNESS: This is a 50-year-old male with past medical history significant for history of coronary artery disease, prediabetes, depression, anxiety, tobacco use disorder, presents with chest pain. The patient is a truck driver's offsider. He states that since last Sunday he was getting chest pain, a pressure-like feeling in the chest 8/10 in severity that lasts about 5-10 minutes and subsides down, it is not associated with any activity. It happened when he was driving the truck and he has to hold the steering stiff and it is causing pain in his elbows and also neck region. He is taking nitro which seemed to help, but the pain is coming back. Today took 5 nitros, which prompted him to come to the ER. In the ER currently, the pain is 2/10 in severity. EKGs, no acute findings. Troponin was slightly elevated at 0.05. Getting IV heparin for non-ST elevated myocardial infarction. Hemodynamics are stable. Denies any other problems. Denies any headache, no blurred vision, no earache, no runny nose, no sore throat, no cough, no loss of sense of smell or taste. No dysphagia, no shortness of breath, no nausea, no abdominal pain. Normal bowel and bladder movements. No swelling in the legs, no rash. Otherwise, before this episode, he was ambulating okay without any issues. Principal Diagnosis Coronary artery disease involving autologous artery coronary bypass graft with angina pectoris Non-ST elevation (NSTEMI) myocardial infarction s/p cardiac catheterization with 2 drug eluting stents Hypertensive urgency / Hypertension Discharge Exam Constitutional comfortable Eyes PERRL, conjunctivae normal, anicteric sclerae EOM intact bilaterally ENMT external ear and nose normal, oropharynx normal Neck normal visual inspection Respiratory normal respiratory effort, lungs clear to auscultation Cardiovascular Rate/Rhythm: regular rate and regular rhythm Gastrointestinal (Abdomen) normal bowel sounds, soft, nontender, no hepatosplenomegaly Musculoskeletal Head/Neck/Chest: normocephalic and head atraumatic Neurologic PERRL, EOMI, accommodation nl, no face palsy, no dysarthria Psychiatric A+Ox3, euthymic affect Discharge Data Allergies Allergy/AdvReac Type Severity Reaction Status Date / Time No Known Allergies Allergy Verified 04/30/20 05:36 Consultations 04/30/20 06:14 ED Decision to Admit Stat 04/30/20 07:47 Consult Case Management - Discharge Planning Routine 04/30/20 08:00 Consult Cardiology Routine Procedures Performed Operation Date: 04/30/20 15:00 Actual Procedures p Cath, Left with Cors and Vent - Darwin Littlejohn MD s Cineradiography w/Routine Exam - Pranav Lee MD s IVUS Coronary Single Vessel - Pranav Lee MD s Drug Eluting Stent SGl Vessel - Pranav Lee MD s Drug Eluting Stent each ADDTL Vessel - Pranav Lee MD Ordered Studies 04/30/20 10:59 CL Cath Imgs for PACS use only Routine 04/30/20 15:27 CL IVUS Coronary Single Vessel Routine Hospital Course (1) Coronary artery disease involving autologous artery coronary bypass graft with angina pectoris: (2) Non-ST elevation (NSTEMI) myocardial infarction: s/p cardiac catheterization with 2 drug eluting stents -50-year-old male with known premature coronary artery disease presents symptoms of crescendo angina x3 days consistent past myocardial ischemia, mild elevation initial troponin of 0.053 -patient initially started on IV heparin drip, he was evaluated by cardiology service and went to cardiac cath on 04/30/2020. PCI of mid LAD/second diagonal bifurcation with 2 drug-eluting stents (3.0 x 18 Xience to LAD, 2.25 x 12 Xience to D2). -patient will need to be on dual antiplatelets of aspirin 81 mg daily and clopidogrel 75 mg daily -have changed home dose atorvastatin 80 mg daily to rosuvastatin 40 mg daily with Ezetimibe 10 mg daily starting on 05/01/2020 -beta blockers as per cardiology service -05/01/2020: Patient seen and examined by hospitalist in AM of 05/01/2020. Despite rising troponin since cardiac cath on 05/01/2020 (to 0.784 and then 1.95 by AM labs of 05/01/2020), patient denies acute chest pain. There is some ecchymosis at the right groin cath site but no swelling. Patient has been ambulatory. Breathing on room air. No shortness of breath. No acute distress. No abdominal pain. No nausea. No vomiting. -Cardiology DrRufino WillsSheldon allows for hospital discharge. no further troponin labs. Patient is without chest pain -Discharge to home -Discharge medications sent electronically to [facility] at [address] [place] [address] of aspirin 81 mg daily and clopidogrel (Plavix) 75 mg daily (will need to be on this combination for 1 year to prevent occlusion of coronary stents) of rosuvastatin (Crestor) 40 mg daily and ezetimibe (Zetia) 10 mg daily as replacement for home dose atorvastatin 80 mg daily (if prices for rosuvastatin are too costly then patient may continue the atorvastatin with ezetimibe) of lisinopril 5 mg daily (may need to be adjusted based on patient's blood pressures by clinic doctors) continue home dose carvedilol 12.5 mg twice a day Patient will need to schedule follow up appointment with primary care doctor and [facility] cardiology clinic Patient advised to cut back on tobacco use (3) Hypertensive urgency: Hypertension -initial blood pressure 175/109 when in the ED, likely from chest pain -was given nitro -started on lisinopril 5 mg daily starting on 04/30/2020, continue -also currently on home dose carvedilol 12.5 mg BID HbA1c 5.9 - no diabetes (4) Tobacco abuse: -patient smokes 2 packs of cigarettes per day. He has been counseled to reduce smoking especially in regards to CAD. -patient declines nicotine patch at this time Total Time Total Time Spent Total Time Spent (In Minutes): 40 minutes Total Time Includes: Examination of the Patient, Discharge Planning, Medication Reconciliation and Communication With Other Providers Discharge Plan Discharge Items Patient Disposition: Home - Self-Care Reason For Visit: CHEST PAIN Discharge Diagnosis: Coronary artery disease involving autologous artery coronary bypass graft with angina pectoris Non-ST elevation (NSTEMI) myocardial infarction s/p cardiac catheterization with 2 drug eluting stents Hypertensive urgency / Hypertension Condition on Discharge: Good Activity: Resume your previous activity Non-emergency contact: Primary Care Provider and Health Record Technician Call non-emergency contact if: you have any medication questions Follow-up/Referrals: Jalil Daniels MD [Primary Care Provider] - Diet: Heart Healthy Addtl Attending Provider Instructions: Discharge to home Discharge medications sent electronically to [facility] at [address] [place] [address] of aspirin 81 mg daily and clopidogrel (Plavix) 75 mg daily (will need to be on this combination for 1 year to prevent occlusion of coronary stents) of rosuvastatin (Crestor) 40 mg daily and ezetimibe (Zetia) 10 mg daily as replacement for home dose atorvastatin 80 mg daily (if prices for rosuvastatin are too costly then patient may continue the atorvastatin with ezetimibe) of lisinopril 5 mg daily (may need to be adjusted based on patient's blood pressures by clinic doctors) continue home dose carvedilol 12.5 mg twice a day Patient will need to schedule follow up appointment with primary care doctor and [facility] cardiology clinic Patient advised to cut back on tobacco use Addtl Transfusion Aide Provider Instructions: . Who to Call and When: Medical Emergencies: If at any time you feel your situation is an emergency, please call 911 immediately. Call 911 immediately or go to your nearest Emergency Room if you experience any of the following: Warning Signs and Symptoms of a Heart Attack * Chest pain that is not relieved by medication * Shortness of breath Pending Studies at Discharge: No Stand-Alone Forms: [facility] Giving Assistant, Smoking Cessation Medications and DC Order Prescriptions: New clopidogrel 75 mg Tablet 75 mg PO DAILY 30 Days Qty: 30 RF: 3 aspirin 81 mg Tablet,Delayed Release (Dr/Ec) 81 mg PO QAM 30 Days Qty: 30 RF: 3 lisinopril [Zestril] 5 mg Tablet 5 mg PO QAM 30 Days Qty: 30 RF: 0 ezetimibe [Zetia] 10 mg Tablet 10 mg PO QAM 30 Days Qty: 30 RF: 0 rosuvastatin [Crestor] 20 mg Tablet 40 mg PO QAM 30 Days Qty: 60 RF: 0 Continued carvedilol 12.5 mg Tablet 12.5 mg PO BID RF: 0 clopidogrel [Plavix] 75 mg Tablet 75 mg PO DAILY RF: 0 nitroglycerin [Nitrostat] 0.4 mg Tablet, Sublingual 0.4 mg sublingual DIRECTED PRN (Reason: Chest Pain) RF: 0 Discontinued atorvastatin 80 mg Tablet 80 mg PO DAILY RF: 0 Discharge Orders: Discharge Order (Routine); Ordered 05/01/20 Ordered By: Jamie tSeven/Other Patient Handouts: Cardiac Rehab Exercise Program, Coping with Smoking Withdrawal, CAD, Cardiac Rehab Getting Started Admission Data Admit Date/Time: 04/30/20 06:46 Attending Provider: Jamie Thomas Admit Provider: Alexis Keen Primary Care Provider: Jalil Daniels Other Providers: Alexis Keen ; Cirilo Zimmerman ; Robbi Sheriff ; Darwin Littlejohn ; Luis Fernando Curry ; Gene Burrell ; Bear Betancourt ; Pat Rain ; Anika Salgado ; Dwaine Styles
--- NOTE | 2020-05-01 14:05 | Cardiology Progress Note ---
Date of Service May 01, 2020 Assessment & Plan (1) Non-ST elevation (NSTEMI) myocardial infarction: Patient is a 50-year-old male with known atherosclerotic coronary disease and longstanding hypertension. Status post PCIOf the left anterior descending diagonal branch and left anterior descending at the diagonal origin with good result. Currently symptom-free and anxious for discharge. Denies any further chest pain, shortness of breath or palpitations. Tolerating current medical regimen well and should be continued on discharge. Absolute need for smoking cessation once again reviewed with the patient. Offered outpatient therapy but declines. Okay for discharge from a cardiac standpoint. Adherence to medical regimen stressed to the patient. My office will call to arrange follow-up in 2 to 4 weeks. (2) Hypertensive urgency: (3) Coronary artery disease involving autologous artery coronary bypass graft with angina pectoris: (4) Tobacco abuse: Admission and Anticipated Discharge Date Admission Date: April 30, 2020 Subjective Patient seen and examined, chart reviewed. States he feels great. His only concern now is smoking cessation. Denies chest pain, shortness of breath, palpitations, lightheadedness, dizziness or syncope. Telemetry reviewed: Normal sinus rhythm without arrhythmia or significant ectopy. Review of Systems Review of Systems: All systems reviewed & are unremarkable except as noted in HPI & below Physical Exam Physical Exam: General: Awake, alert and oriented x 3. No acute distress. HEENT: Normocephalic, atraumatic. Pupils equal, round and reactive to light and accommodation. Extraocular muscles are intact. Anicteric sclera. Moist mucous membranes. Neck: No JVD. No bruit. Cardiovascular: Regular. Positive S-4. Normal S-1 and S-2. No S-3. No murmurs or rubs. Pulmonary: Clear to auscultation B/L. No rales, rhonchi or wheezing Abdomen: Bowel sounds x 4, soft. No rebound, guarding or tenderness. No organomegaly. Extremities: No clubbing, cyanosis or edema. +2 pedal pulses bilaterally. Skin: Warm and dry. Results & Data ([facility]) Vital Signs (Past 12 Hours) Vital Signs Temp Pulse Pulse Resp BP Pulse Ox 05/01/20 13:44 36.7 C 72 18 125/74 96 05/01/20 11:16 36.7 C 72 18 125/74 96 05/01/20 11:02 70 05/01/20 07:52 37.2 C 82 18 158/101 H 95 05/01/20 04:26 36.8 C 86 18 134/78 96
== END 2020-05-01 14:30 | disposition home or self-care (01) | DRG 247 ==
LOC: ED 05:08 → 2S 06:46